=== PATIENT | female | born 1970 | race Two or more races ===

== ENCOUNTER 2018-05-03 09:14 | Emergency (ER) | payer OTHER ==
[~2018-05-03] VITALS: Ht 160 cm; Wt 79.4 kg
[2018-05-03 09:50] VITALS: BP 136/76
[2018-05-03] MEDS ORDERED: IBUPROFEN 800 MG TAB PO ONE (10:00)
== END 2018-05-03 10:09 | disposition home or self-care (01) ==
LOC: ER 09:14
DX: S60.032A Contusion of left middle finger without damage to nail, initial encounter (principal); W22.8XXA Striking against or struck by other objects, initial encounter; Y93.89 Activity, other specified; Y92.89 Other specified places as the place of occurrence of the external cause; Y99.8 Other external cause status
CPT/HCPCS: 29130; 73140